=== PATIENT | female | born 1935 | race Caucasian/White ===

== ENCOUNTER 2017-02-13 10:30 | Observation (INO) | payer MEDICARE ==
--- NOTE | ~2017-02-13 | EKG ---
PATIENT: SHERICE AMIN UNIT #: [id number] Ventricular Rate: 66 BPM Atrial Rate: 66 BPM P-R Interval: 136 ms QRS Duration: 96 ms Q-T Interval: 392 ms QTC Calculation(Bezet): 410 ms P [place]: 41 degrees Calculated R [place]: -25 degrees Calculated T [place]: 109 degrees Diagnosis Line: Normal sinus rhythm Diagnosis Line: Inferior infarct , age undetermined Diagnosis Line: Anteroseptal infarct (cited on or before Diagnosis Line: 03-JUL-2012) Diagnosis Line: ST and T wave abnormality, consider lateral ischemia Diagnosis Line: Abnormal ECG Diagnosis Line: When compared with ECG of 13-FEB-2017 10:47, Diagnosis Line: (unconfirmed) Diagnosis Line: Inferior infarct is now Present Diagnosis Line: Questionable change in initial forces of Anterior Diagnosis Line: leads Diagnosis Line: Nonspecific T wave abnormality no longer evident Diagnosis Line: in Inferior leads Diagnosis Line: T wave inversion more evident in Lateral leads Diagnosis Line: Confirmed by BRITTNI GOLDSTEIN MD ([id number]) on Diagnosis Line: 02/14/2017 1:31:01 PM INTERPRETING MD: ANGELITA HENDERSON
--- NOTE | ~2017-02-13 | EKG ---
PATIENT: SHERICE AMIN UNIT #: [id number] Ventricular Rate: 62 BPM Atrial Rate: 62 BPM P-R Interval: 138 ms QRS Duration: 88 ms Q-T Interval: 410 ms QTC Calculation(Bezet): 416 ms P [place]: 69 degrees Calculated R [place]: 38 degrees Calculated T [place]: 60 degrees Diagnosis Line: Normal sinus rhythm Diagnosis Line: Poor R wave progression questionable lead position Diagnosis Line: or body habitus Diagnosis Line: Nonspecific ST and T wave abnormality Diagnosis Line: Abnormal ECG Diagnosis Line: When compared with ECG of 03-JUL-2012 08:56, Diagnosis Line: No significant change was found Diagnosis Line: Confirmed by ARTUR VAZQUEZ MD ([id number]) on Diagnosis Line: 02/13/2017 11:03:10 PM INTERPRETING MD: CM
--- NOTE | ~2017-02-13 | HM ---
Unit #: [id number] #: [id number] Patient: SHERICE AMIN [id number] [address] [address] [id number] I MR#: [id number] NAME: SHERICE AMIN : 1935 SEX: F STUDY DATE/TIME: 02/14/2017 UNIT: [facility] ROOM: 564 STUDY DESCRIPTION: Holter Monitor Attending Physician: Ashok Julian M.D. Primary Care Physician: Rd Lomeli M.D. CARDIOLOGY REPORT EXAM 24 hour holter monitor DATE APPLIED 02/14/2017 DATE SCANNED 02/19/2017 ORDERED BY Carolann Palomino READ BY Dr. Priya Lyles REASON FOR THE STUDY Chest pain. FINDINGS Underlying rhythm is normal sinus rhythm with an average heart rate of 68 beats/minute, minimum heart rate of 55 beats/minute, and a maximum heart rate of 133 beats/minute. The minimum heart rate of 55 beats per minute is noted at 1:55 a.m. The maximum heart rate of 133 beats/minute is noted at 12:38 a.m. The patient had a 0.6 second pause noted at 5:31 a.m. The patient had 139 single multifocal premature ventricular complexes noted. The patient had 124 single premature atrial complexes noted. The patient had a three beat run of SVT at a heart rate of 144 beats/minute. The patient did not record any symptoms. CONCLUSION 1. Underlying rhythm is normal sinus rhythm with an average heart rate of 68 beats/minute, minimum heart rate of 55 beats/minute and a maximum heart of 133 beats/minute. 2. No sustained atrial or ventricular arrhythmias noted. 3. No significant pauses noted. 4. Frequent single multifocal premature ventricular complexes noted. 5. Occasional single premature atrial complexes noted. 6. The patient had a three beat run of paroxysmal supraventricular tachycardia at a heart rate of 144 beats/minute. 7. The patient is did not record any symptoms. Unit #: [id number] #: [id number] Patient: SHERICE AMIN Dictated by... Keke García TD: 02/22/2017 12:22 JOB #: [id number] CARDIOLOGY REPORT Page 1 of 1 X Priya Lyles MD <ELECTRONICALLY SIGNED> 04/22/17 1429 HOLTER MONITOR REPORT
--- NOTE | ~2017-02-13 | US37 ---
[facility] A Service of [facility] & [facility] RADIOLOGY TEXT RESULTS PATIENT: SHERICE AMIN LOCATION: [facility] 564-01 : 34 UNIT #: [id number] AGE: [address]: Ashok Julian MD SEX: F ORDER DR: [id number] [facility] [address] [place], [place] [address] [id number] I MR#: [id number] Acc #: [id number] NAME: SHERICE AMIN : 1935 SEX: F STUDY DATE/TIME: 02/14/2017 8:22 UNIT: [facility] ROOM: [facility] STUDY DESCRIPTION: US Carotid W/Doppler Bilateral Attending Physician: Ashok Julian M.D. Ordering Physician: Ashok Julian M.D. Primary Care Physician: Rd Lomeli M.D. MEDICAL IMAGING REPORT This report is preliminary unless electronic signature is present EXAM Bilateral carotid Doppler ultrasound, 02/14/2017 HISTORY 81-year-old female with dizziness and loss of balance when turning. Patient states dizziness with exertion for years. Additional history of hypertension and high cholesterol. COMPARISON No previous carotid Doppler ultrasound at this institution for comparison. PROCEDURE Real time cason-scale, color Doppler and spectral Doppler imaging was performed of the bilateral cervical carotid arteries and vertebral arteries. Estimated stenosis was based on standard NASCET methodology. FINDINGS There is mild soft plaquing in the distal right common carotid artery and carotid bulb. No appreciable calcific atherosclerotic features are identified. Mild soft plaquing in the proximal right internal carotid artery. Peak systolic velocity in the right internal carotid artery proximal 61.2 cm/sec, mid segment 60.7 cm/sec, distal segment 75.6 cm/sec, indicating less than 50% luminal stenosis by NASCET criteria. Normal spectral Doppler waveforms are identified. Right external carotid artery is patent. Right vertebral artery is patent with normal antegrade flow. Very mild soft plaquing or intimal hyperplasia is seen within the left carotid bulb and proximal left internal carotid artery. Left external carotid artery is patent. Left internal carotid artery peak systolic velocity proximal segment 90.0 cm/sec, mid segment 94.3 cm/sec, distal segment 79.8 cm/second, indicating less than 50% luminal stenosis by NASCET criteria. Normal spectral Doppler waveform is demonstrated. Left vertebral artery is patent with normal antegrade flow. [facility]. [facility] A Service of [facility] RADIOLOGY TEXT RESULTS PATIENT: SHERICE AMIN LOCATION: [facility] 564-01 : 34 UNIT #: [id number] AGE: [address]: Ashok Julian MD SEX: F ORDER DR: Right ICA/CCA ratio 1.2. Left ICA/CCA ratio 1.18. IMPRESSION 1. Only mild soft plaquing or intimal hyperplasia is demonstrated within the bilateral carotid bulbs and proximal internal carotid arteries. There is less than 50% luminal stenosis in bilateral internal carotid arteries based on NASCET methodology. 2. Patency and antegrade flow of the bilateral vertebral arteries. Dictated by... Lily Randall M.D. THIS IS AN ELECTRONICALLY VERIFIED REPORT Lily Randall M.D. at 02/15/2017 9:41 AM DON/porter TD: 02/14/2017 10:36 JOB #: [id number] MEDICAL IMAGING REPORT Page 1 of 1 COPY
--- NOTE | ~2017-02-13 | ST ---
Unit #: [id number] #: [id number] Patient: SHERICE AMIN [id number] [facility]. [place], [place] [address] [id number] I MR#: [id number] NAME: SHERICE AMIN : 1935 SEX: F STUDY DATE/TIME: 02/14/2017 UNIT: [facility] ROOM: 564 STUDY DESCRIPTION: Stress test Attending Physician: Ashok Julian M.D. Primary Care Physician: Rd Lomeli M.D. CARDIOLOGY REPORT EXAM Stress test. FINDINGS EKG shows normal sinus rhythm with a ventricular rate 67 beats per minute. Anteroseptal Q waves noted. Poor R wave progression. T wave inversion in inferolateral leads. The patient had no complaints of chest pain, palpitations or dizziness. The patient had increased shortness of breath and fatigue which resolved in recovery phase. Lexiscan is a four minute test with Lexiscan being injected within the first minute followed by Cardiolite. Next, EKG during the test showed a 1.[address] depression inferolateral leads with occasional premature ventricular complex. Maximum heart rate response was 134 beats per minute with a maximum blood pressure of 195/91 mmHg. Cardiolite was injected after Lexiscan within the first minute of the test. Radionuclide test pending. Please correlate with nuclear images. Dictated by... Carolann Palomino A.P.R.N. for Keke García/pritesh TD: 02/14/2017 12:18 JOB #: [id number] CARDIOLOGY REPORT Page 1 of 1 X Carolann Palomino APRN CARDIOLOGY REPORT
--- NOTE | ~2017-02-13 | CT71 ---
[facility] A Service of [facility] RADIOLOGY TEXT RESULTS PATIENT: SHERICE AMIN LOCATION: [facility] 5612-31 : 34 UNIT #: [id number] AGE: [address]: Ashok Julian MD SEX: F ORDER DR: [id number] [facility] [address] [place], [place] [address] [id number] I MR#: [id number] Acc #: [id number] NAME: SHERICE AMIN : 1935 SEX: F STUDY DATE/TIME: 02/13/2017 14:16 UNIT: [facility] ROOM: [facility] STUDY DESCRIPTION: CT Head Wo Contrast Attending Physician: Ashok Julian M.D. Ordering Physician: Jerry Anand D.O. Primary Care Physician: Rd Lomeli M.D. MEDICAL IMAGING REPORT This report is preliminary unless electronic signature is present EXAM CT brain without contrast media. HISTORY Weakness and dizziness for 5 days. TECHNIQUE Axial imaging of the brain was performed without contrast media. This CT exam was performed with one or more of the following radiation dose reduction techniques: automatic exposure control, adjustment of mA and/or kV according to patient size, and iterative reconstruction. FINDINGS There is generalized predominance of the ventricles and CSF-containing spaces. There is atherosclerotic calcification in the carotid siphons. No mass lesions, mass effect, evidence of acute hemorrhage or edema. No intra or extraaxial fluid collections are present. The patient does have evidence of left sphenoid sinus disease. CONCLUSION 1. Atrophy. 2. No acute intracranial findings. 3. Left sphenoid sinus disease. Dictated by... Bonilla Hall M.D. THIS IS AN ELECTRONICALLY VERIFIED REPORT Bonilla Hall M.D. at 02/14/2017 7:28 AM LANGK/aliciaw [facility] A Service of [facility] RADIOLOGY TEXT RESULTS PATIENT: SHERICE AMIN LOCATION: [facility] 5612-31 : 34 UNIT #: [id number] AGE: [address]: Ashok Julian MD SEX: F ORDER DR: TD: 02/13/2017 17:04 JOB #: [id number] MEDICAL IMAGING REPORT Page 1 of 1 COPY
--- NOTE | ~2017-02-13 | HP ---
Unit #: [id number] #: [id number] Patient: SHERICE CHOI [id number] [facility]. [place], [place] [address] [id number] E MR#: [id number] NAME: SHERICE CHOI ROOM: Age: 81 Sex: F Admission Date: 02/13/2017 : 1935 Attending Physician: Jerry Anand D.O. Primary Care Physician: Rd Lomeli M.D. HISTORY AND PHYSICAL HISTORY OF PRESENT ILLNESS This is an 81-year-old white female with a history of hypertension and hyperlipidemia. She reports having paroxysmal atrial fibrillation found several years ago and is not on any anticoagulation. She also reports she has factor V Leiden deficiency but was told by a railroad car cleaner she did not need to be on chronic anticoagulation but only on an aspirin. She has GERD and degenerative disk disease. She had a normal stress test a few years back and is a nonsmoker. She came to the emergency room with persistent dizziness, unsteady gait, and on one episode had some nausea and vomiting. She did report having some occasional palpitations and had a couple of episodes where her upper chest felt tight. She said it was not severe pain, just felt like a pressure. She denies that she had any tightness or pain up in her neck or bilateral jaws, shoulders, arms, or elbows. She said she does feel palpitations on occasion. She knows what it feels like to have atrial fibrillation, but this felt different. She denied having any abdominal pain and no diarrhea and denied any shortness of breath. She said she did not pass out with the dizzy spells. Her daughter who is at the bedside witnessed one time when the patient was feeling very weak and dizzy. She said she got very pale. She never stated that she wanted to pass out but she did vomit and felt better. The patient states she did take her blood pressure only one time but not during that episode, but her blood pressure was 158 systolic this morning. Patient came in for her multiple complaints. She is being admitted for further evaluation. PAST MEDICAL HISTORY 1. Hypertension. 2. Hyperlipidemia. 3. Paroxysmal atrial fibrillation, on aspirin only. 4. Deep venous thrombosis years ago. 5. Reports having factor V Leiden deficiency but not on anticoagulation. 6. Gastroesophageal reflux disease. 7. Colon polyps. 8. Degenerative disk disease. 9. In 1997, she had a cardiac cath with ejection fraction of 40% and normal coronaries. 10. She had a stress test 10 years ago told was normal. 11. Breast nodule. 12. Anxiety. 13. Nonsmoker. PAST SURGICAL HISTORY Unit #: [id number] #: [id number] Patient: SHERICE CHOI 1. Hysterectomy. 2. Cholecystectomy. 3. Tonsillectomy. 4. Hemorrhoid surgery. 5. Bilateral breast biopsies which were benign. 6. Lipomas from her right forearm and lipoma from her liver which was found to be benign. HOME MEDICATIONS 1. Toprol-XL 25 mg p.o. twice daily. 2. Lanoxin 0.25 mg p.o. daily. 3. Aman 5/40 at 1 tablet p.o. daily. 4. Aspirin 81 mg p.o. daily. 5. Vitamin C 500 mg p.o. daily. 6. Omeprazole 20 mg p.o. daily. 7. Claritin 10 mg p.o. daily. ALLERGIES Morphine and meperidine. SOCIAL HISTORY Patient lives in her own home. She is very active for her age. She has been walking sometimes up to two miles a day but recently has had some dizziness. She has been a lifelong nonsmoker and no alcohol or illicit drug abuse. FAMILY HISTORY Her mother maybe had some type of heart condition but at an older age. Her father and siblings were in generally well health. She did have a son who two years ago who had multiple blood clots in his lungs and bilateral lower extremities. REVIEW OF SYSTEMS CONSTITUTIONAL: Denies fever or chills. No recent weight gain or weight loss. HEENT: Complains of dizziness. No headache. No visual changes. NECK: No lymphadenopathy or thyromegaly and no difficulty swallowing. CARDIOVASCULAR: Some chest pressure and occasional palpitations. Denies increased lower extremity edema. PULMONARY: Denies shortness of breath and denies paroxysmal nocturnal dyspnea or orthopnea. GASTROINTESTINAL: Had some nausea and vomiting with the dizziness. No abdominal pain. NEUROLOGICAL: Some dizziness and weakness. PHYSICAL EXAMINATION GENERAL: Ms. Choi is an 81-year-old white female in no acute respiratory distress. She is awake, alert, and oriented. VITAL SIGNS: Blood pressure lying was 198/93 with a heart rate 71, blood pressure sitting was 177/86 with a heart rate of 66, and blood pressure standing was 156/90 with a heart rate of 75. Temperature is 97.6 and O2 saturation is 99% on room air. NECK: Trachea midline. No thyromegaly or lymphadenopathy. Normal carotid upstrokes. No jugular venous distention. HEART: S1 and S2, regular rate and rhythm. No clicks, murmurs, or rubs. LUNGS: Bilaterally clear throughout. No wheezes, rales, or rhonchi. ABDOMEN: Soft and nontender. Positive bowel sounds present. No hepatosplenomegaly. Unit #: [id number] #: [id number] Patient: SHERICE CHOI EXTREMITIES: Pedal pulses are palpable. No pedal edema. DIAGNOSTIC STUDIES LABORATORY: Glucose is 113, BUN 12, creatinine 0.9, eGFR 59.6, sodium 140, potassium 3.5, chloride 102, CO2 is 30, calcium 9, total protein 7.2, albumin 4.3, bilirubin total 1.2, AST 17, ALT 17, and alkaline phosphatase is 45. Digoxin level 0.4. WBC 7.8, hemoglobin 13.5, hematocrit 41.1, and platelets 215,000. Pro time is 10.7 and INR is 1. IMAGING: Chest x-ray, preliminary report, nothing acute. CARDIOLOGY: EKG shows normal sinus rhythm. She does have some septal infarcts age undetermined, poor R wave progression, and left ventricular hypertrophy. IMPRESSION 1. Dizziness, questionable orthostasis. 2. Palpitations. 3. Hypertension. 4. Hyperlipidemia. 5. Chest pressure. 6. Factor V Leiden deficiency, not on anticoagulation. 7. Gastroesophageal reflux disease. 8. Anxiety. 9. History of paroxysmal atrial fibrillation, not on anticoagulation. 10. Hyperlipidemia. 11. Nonsmoker. PLAN 1. Patient will be admitted for further evaluation and workup. 2. Will obtain a CT of her head to evaluate for any abnormalities based on her symptoms. She does have some palpitations. Questionable if she may be in and out of atrial fibrillation so want to rule out any ischemic stroke. If the CT of her head is normal, will proceed with a stress test tomorrow for further evaluation. It has been several years since she had ischemic heart disease workup. 3. Continue to monitor orthostatic vital signs. Her blood pressure did drop from 198 systolic down to 156. This may likely be what is occurring that would be producing her symptoms. 4. Obtain a 2D echo to evaluate LV function and valves. 5. Obtain a fasting lipid profile and TSH and evaluate. 6. Continue to monitor cardiac enzymes. 7. If CT of the head is negative, will start on Lovenox. Will talk to Dr. Julian about the patient not being on chronic anticoagulation. She states that she has been to a railroad car cleaner, and he told her she did not need any chronic anticoagulation, just an aspirin. 8. On exam, there are no signs or symptoms of acute congestive heart failure. 9. Will continue patient's current cardiac medications and make any adjustments as needed. 10. Further recommendations pending per Dr. Julian. 1. Dictated by Carolann Palomino A.P.R.N. for Keke Guillermo/pepe Unit #: [id number] #: [id number] Patient: SHERICE CHOI TD: 02/13/2017 15:42 JOB #: [id number] HISTORY AND PHYSICAL Page 1 of 1 X Carolann Palomino APRN HISTORY AND PHYSICAL
--- NOTE | ~2017-02-13 | CR72 ---
[facility] A Service of [facility] & [facility] RADIOLOGY TEXT RESULTS PATIENT: SHERICE AMIN LOCATION: [facility] : 34 UNIT #: [id number] AGE: [address]: Ashok Julian MD SEX: F ORDER DR: [id number] [facility] [address] [place], [place] [address] [id number] MR#: [id number] Acc #: [id number] NAME: SHERICE AMIN : 1935 SEX: F STUDY DATE/TIME: 02/13/2017 12:05 UNIT: [facility] ROOM: STUDY DESCRIPTION: CR Chest Single View Portable Attending Physician: Jerry Anand D.O. Ordering Physician: Jerry Anand D.O. Primary Care Physician: Rd Lomeli M.D. MEDICAL IMAGING REPORT This report is preliminary unless electronic signature is present EXAM Chest portable 02/13/2017 at 12:05 hours HISTORY An 81-year-old woman with 3-week history of shortness of air and weakness. COMPARISON 03/30/2016 FINDINGS Upright portable chest demonstrates normal heart size. There is mild atherosclerotic change of the aorta which is stable. The lungs are well expanded and clear. There are no effusions. IMPRESSION No acute cardiopulmonary findings. No appreciable change from 03/30/2016. Dictated by... Leslye Sotelo M.D. THIS IS AN ELECTRONICALLY VERIFIED REPORT Leslye Sotelo M.D. at 02/14/2017 9:28 AM Arielle TD: 02/13/2017 14:45 JOB #: [id number] MEDICAL IMAGING REPORT Page 1 of 1 COPY
--- NOTE | ~2017-02-13 | EKG ---
PATIENT: SHERICE AMIN UNIT #: [id number] Ventricular Rate: 58 BPM Atrial Rate: 58 BPM P-R Interval: 144 ms QRS Duration: 90 ms Q-T Interval: 422 ms QTC Calculation(Bezet): 414 ms P [place]: 63 degrees Calculated R [place]: 63 degrees Calculated T [place]: 18 degrees Diagnosis Line: Sinus bradycardia Diagnosis Line: Septal infarct (cited on or before 13-FEB-2017) Diagnosis Line: ST and T wave abnormality, consider lateral ischemia Diagnosis Line: Abnormal ECG Diagnosis Line: When compared with ECG of 13-FEB-2017 16:55, Diagnosis Line: (unconfirmed) Diagnosis Line: QRS axis Shifted right Diagnosis Line: Criteria for Inferior infarct are no longer Diagnosis Line: Present Diagnosis Line: Serial changes of Septal infarct Present Diagnosis Line: Confirmed by ONEYDA JORGENSEN MD ([id number]) on 02/16/2017 Diagnosis Line: 10:26:17 AM INTERPRETING MD: JAMEEL HENDERSON
--- NOTE | ~2017-02-13 | TH ---
Unit #: [id number] #: [id number] Patient: SHERICE AMIN [id number] [address] [address] [id number] I MR#: [id number] NAME: SHERICE AMIN : 1935 SEX: F STUDY DATE/TIME: 02/14/2017 UNIT: [facility] ROOM: 564 STUDY DESCRIPTION: Attending Physician: Ashok Julian M.D. Primary Care Physician: Rd Lomeli M.D. CARDIOLOGY REPORT EXAM Lexiscan Cardiolite stress test, nuclear portion. PROCEDURE Using technetium 99m labeled Cardiolite, rest and stress SPECT images were obtained. Multiple SPECT images were obtained in various views including horizontal and vertical long axis and short axis views of the left ventricle. Images were obtained by gated SPECT method. The patient was administered 10.99 mCi of Cardiolite at rest. The patient was administered 31.4 mCi of Cardiolite after Lexiscan infusion was completed. On the stress images, there is normal perfusion noted. The rest images showed normal perfusion. Comparing rest and stress images, there is no stress-induced ischemia noted. The left ventricular ejection fraction is calculated to be 71%. There is no focal wall motion abnormality seen. CONCLUSION 1. No stress-induced ischemia noted. 2. The left ventricular ejection fraction is calculated to be 71%. 3. There is no focal wall motion abnormality seen. 4. The left ventricular size is small. 5. Normal nuclear portion of the stress test. 6. It must be noted that the patient had significant [address] depression noted in the inferolateral leads. Clinical correlation is requested. Patient may need additional testing to rule out coronary artery disease. Dictated by... Keke García TD: 02/14/2017 15:33 JOB #: [id number] Unit #: [id number] #: [id number] Patient: SHERICE AMIN CARDIOLOGY REPORT Page 1 of 1 X Priya Lyles MD <ELECTRONICALLY SIGNED> 04/22/17 1429 CARDIOLOGY REPORT
[~2017-02-13 10:30] MED LIST: ACIPHEX20 MG PO; ALPRAZOLAM PO; ASPIRIN PO; AZOR; AZOR 5/40 MG TA1 TAB PO; BENICAR PO; CAL ZINC; CLARITIN10 M1 PO; FISH OIL 1,0001 CAP PO; FLAX SEED OIL1000 M1 PO; LANOXIN PO; LIPITOR PO; LORTAB 101 TAB 10/5 DOB; MAGNESIUM250 M1 PO; PRILOSEC20 MG PO; TOPROL XL PO; VITAMIN B 12 PO; VITAMIN C PO
[2017-02-13 11:36] LABS: BASOPHIL% 0.6 % (0-2.5); EOSINOPHIL% 0.2 % (0.0-7.0); HEMATOCRIT 41.1 % (35.0-45.0); HEMOGLOBIN 13.5 gm/dL (12.0-16.0); LYMPHOCYTE# 1.1 X10e3 (1.0-3.5); LYMPHOCYTE% 13.6 % (17.0-45.0); MEAN CELL VOLUME 89.6 FL (83-96); MEAN CORPUSCULAR HEMOGLOBIN 29.4 PG (28-34); MEAN CORPUSCULAR HGB CONC 32.8 g/dL (30-36); MEAN PLATELET VOLUME 8.5 FL (6.5-11.5); MONOCYTE# 0.8 X10e3 (0-1.0); MONOCYTE% 9.8 % (3.0-12.0); NEUTROPHIL# 5.9 X10e3 (1.5-7.1); NEUTROPHIL% 75.8 % (40-75); PLATELET COUNT 215 X10e3 (140-420); RED BLOOD COUNT 4.59 X10e (3.90-5.30); RED CELL DISTRIBUTION WIDTH 13.2 % (11.0-15.5); WHITE BLOOD COUNT 7.8 X10e3 (4.0-10.5)
[2017-02-13 11:40] LABS: DIFF IND NO
[2017-02-13 11:49] LABS: PARTIAL THROMBOPLASTIN TIME 25.4 SECONDS (23.5-31.3); PROTHROMBIN TIME (PATIENT) 10.7 SECONDS (9.6-11.5)
[2017-02-13 12:03] LABS: ALBUMIN SERUM 4.3 g/dL (3.5-5.0); BILIRUBIN,TOTAL 1.2 mg/dL (0.2-2.0); BUN/CREATININE RATIO 13.33; CREATININE SERUM 0.9 mg/dL (0.6-1.4); DIGOXIN (LANOXIN) 0.4 ng/ml (1.0-2.0); GLOM FILT RATE Estimated 59.6 mL/min (>60); POTASSIUM 3.5 mmol/L (3.5-5.1); PROTEIN TOTAL SERUM 7.2 g/dL (6.0-8.3)
[2017-02-13 12:03] LABS: POC - CKMB <1.0 ng/mL (0.0-7.9); POC - TROPONIN <0.05 ng/mL (<=0.05)
[2017-02-13] MEDS ORDERED: TOPROL XL PO (12:31)
[2017-02-13] MEDS ORDERED: LANOXIN PO (12:32)
[2017-02-13] MEDS ORDERED: AZOR 5-40 MG T1 EACH PO (12:32)
[2017-02-13] MEDS ORDERED: ASPIRIN81 M2 PO (12:33)
[2017-02-13] MEDS ORDERED: VITAMIN C500 MG PO (12:33)
[2017-02-13] MEDS ORDERED: OMEPRAZOLE20 M2 PO (12:34)
[2017-02-13] MEDS ORDERED: CLARITIN10 M3 PO (12:36)
[2017-02-13 13:18] LABS: POC - CKMB <1.0 ng/mL (0.0-7.9); POC - TROPONIN <0.05 ng/mL (<=0.05)
[2017-02-13 19:53] LABS: CK TOTAL 47 IU/L (26-140)
[2017-02-14 01:34] LABS: CK TOTAL 41 IU/L (26-140)
[2017-02-14 06:54] LABS: HEMATOCRIT 38.6 % (35.0-45.0); HEMOGLOBIN 12.9 gm/dL (12.0-16.0); MEAN CELL VOLUME 88.8 FL (83-96); MEAN CORPUSCULAR HEMOGLOBIN 29.7 PG (28-34); MEAN CORPUSCULAR HGB CONC 33.4 g/dL (30-36); MEAN PLATELET VOLUME 9.2 FL (6.5-11.5); RED BLOOD COUNT 4.35 X10e (3.90-5.30); RED CELL DISTRIBUTION WIDTH 13.1 % (11.0-15.5); WHITE BLOOD COUNT 5.8 X10e3 (4.0-10.5)
[2017-02-14 07:39] LABS: BUN/CREATININE RATIO 14.28; CALCIUM SERUM 8.8 mg/dL (8.4-10.2); CREATININE SERUM 0.7 mg/dL (0.6-1.4); GLOM FILT RATE Estimated 80.7 mL/min (>60); POTASSIUM 3.6 mmol/L (3.5-5.1)
== END 2017-02-14 21:30 | disposition home or self-care (01) ==
LOC: CED 10:30 → C5C 13:30 → CED 16:21 → C5C 16:21
PROVIDERS: Emergency Medicine; Nurse Practitioner; Student in an Organized Health Care Education/Training Program
DX: R42 Dizziness and giddiness (principal); R00.2 Palpitations; I10 Essential (primary) hypertension; E78.5 Hyperlipidemia, unspecified; R07.89 Other chest pain; D68.51 Activated protein C resistance; K21.9 Gastro-esophageal reflux disease without esophagitis; F41.9 Anxiety disorder, unspecified; I48.0 Paroxysmal atrial fibrillation; Z79.82 Long term (current) use of aspirin; Z90.710 Acquired absence of both cervix and uterus; Z90.49 Acquired absence of other specified parts of digestive tract
CPT/HCPCS: 36415; 70450; 71010; 78452; 80048; 80053; 80061; 80162; 82550; 82553; 82947; 84443; 84484; 85025; 85027; 85610; 85730; 93005; 93017; 93225; 93226; 93306; 93880; 99285; A9500; G0378; J2785